=== PATIENT | female | born 1940 | race Caucasian/White ===

== ENCOUNTER → 2017-12-19 | Outpatient (CLI) | payer OTHER | END | disposition home or self-care (01) | LOC: C.PATHSPEC 17:23 | PROVIDERS: ATTEND Urology | DX: R31.9 Hematuria, unspecified (principal) ==

== ENCOUNTER → 2017-12-23 | Outpatient (CLI) | payer OTHER ==
[2017-12-23 18:00] LABS: BLOOD UREA NITROGEN 15 mg/dl (7-18); CREATININE 0.85 mg/dl (0.60-1.20)
== END | disposition home or self-care (01) ==
LOC: C.LABMFLN 14:35
PROVIDERS: ATTEND Urology
DX: R31.9 Hematuria, unspecified (principal)

== ENCOUNTER → 2017-12-30 | Outpatient (CLI) | payer OTHER, MEDICARE ==
[~2017-12-30] MED LIST: OPTIRAY 320 IV PRN
--- NOTE | 2017-12-30 14:38 | DIAGNOSTIC IMAGING REPORT ---
CT OF THE ABDOMEN AND PELVIS WITH AND WITHOUT CONTRAST HEMATURIA PROTOCOL CLINICAL HISTORY: Hematuria. Right flank pain. COMPARISON STUDY: None. TECHNIQUE: Unenhanced and split bolus phase imaging of the abdomen and pelvis was performed. Injection of 120 cc of Optiray 320 IV was uneventful. A dose lowering technique was utilized adhering to the principles of ALARA. CT DOSE: 1820.02 mGycm FINDINGS: Lung bases are clear. No renal, ureteral or bladder calculi are present. There is no hydronephrosis or hydroureter. No upper tract urothelial lesions are identified. The ureters are incompletely opacified. The nondependent aspect of the bladder is unopacified. No urothelial lesion is identified on this exam. Note is made of a 1 cm left renal cyst. Multiple subcentimeter bilateral renal lesions are too small to characterize but likely reflect cysts as well. Mild biliary ductal dilatation is likely due to prior cholecystectomy. There is an 8 mm right hepatic lobe cyst. There is no pancreatic ductal dilatation. The spleen and adrenal glands are unremarkable. There is colonic diverticulosis without evidence for acute diverticulitis. There is no lymphadenopathy or ascites. The appendix is not visualized. There is no right lower quadrant inflammation. A pessary device is in place. IMPRESSION: 1. No CT findings to explain hematuria. Suboptimal opacification of the ureters and bladder but no urothelial lesion identified. No hydronephrosis or urinary tract. 2. No acute process within the abdomen or pelvis. 3. Colonic diverticulosis without evidence for acute diverticulitis. Electronically signed by: Christiano Mancuso M.D. 12/30/2017 2:37 PM Dictated Date/Time: 12/30/2017 12:46 PM
== END | disposition home or self-care (01) ==
LOC: C.CTS 11:39
PROVIDERS: ATTEND Urology
DX: R31.9 Hematuria, unspecified (principal); K57.30 Diverticulosis of large intestine without perforation or abscess without bleeding

== ENCOUNTER → 2018-01-02 | Outpatient (CLI) | payer OTHER, MEDICARE ==
[2018-01-02 17:58] LABS: BLOOD UREA NITROGEN 15 mg/dl (7-18); CREATININE 0.87 mg/dl (0.60-1.20)
== END | disposition home or self-care (01) ==
LOC: C.LABMFLN 12:03
PROVIDERS: ATTEND Urology
DX: R31.9 Hematuria, unspecified (principal)

== ENCOUNTER 2022-12-10 21:00 | Inpatient (IN) ==
[2022-12-10] MEDS ORDERED: SODIUM CHLORIDE 0.9% 1000ML 1,000 ML IV SCH (22:45)
--- NOTE | 2022-12-10 22:51 | Emergency Department Note ---
Impression & Plan Weakness, Balance problem, Acute UTI, Occlusion of right vertebral artery ED Provider Note NAME: EREN HOYT AGE: 82 SEX: F : 1940 ARRIVES VIA: Ambulance INFORMANT: [Patient] ED PROVIDER(S): [Les Vela MD] Patient first seen by me at 2221 CHIEF COMPLAINT: Weakness, unstable, neck pain HISTORY OF PRESENT ILLNESS: The patient is an 82-year-old female with multiple complaints. The patient presents by ambulance. The patient was at [facility] about 3 weeks ago. She underwent a cardiac catheterization without intervention. She had an ablation performed for A-fib. She states that at some point, they put a camera down into her throat and irritated the throat somehow. She has been hoarse ever since. The patient states that she has been weak and feeling poorly since leaving the hospital but in the last week or so, she has had issues with her balance, she has had a hard time finding her words. She has had some increasing right neck pain and does not feel steady. She did fall once but did not really suffer any injury. The patient has had intermittent headaches and some intermittent facial numbness. She has not had chest pain or abdominal pain, no vomiting or diarrhea. No urinary complaints. She can swallow food and drink liquids without difficulty. Of note, the patient is still on Eliquis. She states that she does have a meningioma on the right side of the brain which has been present for some time. PMHx/PSHx: See Below SOCIAL HISTORY: See Below. PHYSICAL EXAM: GENERAL: Patient is in no acute distress. Hoarse voice. HEENT: No acute trauma, normocephalic atraumatic, mucous membranes moist, no nasal congestion. NECK: No stridor, no adenopathy, no meningismus, trachea is midline. She is tender along the right side of the neck in the area of the right carotid. No hematoma or mass felt. LUNGS: Clear to auscultation bilaterally, no wheeze, no rhonchi, breath sounds equal. HEART: Without murmurs gallops or rubs, regular rate and rhythm. ABDOMEN: Soft, nontender, bowel sounds positive, no peritonitis. EXTREMITIES: No cyanosis or edema, full range of motion of all the joints without pain or difficulty, no signs for acute trauma. NEUROLOGIC: Oriented x 3, no acute motor or sensory deficits, no focal weakness. No facial droop, no speech slur. No extremity drift or cerebellar dysfunction. SKIN: No rash, no jaundice, no diaphoresis. DIFFERENTIAL DIAGNOSIS: Stroke, intracranial bleeding, carotid or vertebral dissection, infection, UTI, anemia, electrolyte imbalance, dehydration, among others. EMERGENCY DEPARTMENT COURSE/PROCEDURES: Prior/Outside records reviewed: None. ECG per my interpretation: Indication was weakness. The ECG shows a normal si nus rhythm with a rate of 77. There is some nonspecific ST change and some baseline artifact noted. There is no ST elevation, no PVCs. The QTc is 477. Continuous Cardiac Monitoring per my interpretation: An order was placed for continuous cardiac monitoring. The monitor shows a rate of 76 with normal sinus rhythm. Critical Care Note: I have personally spent 49 minutes of critical care time in the direct management of this patient. This includes bedside care, interpretation of diagnostic studies, and testing, discussion with consultants, patient, and family members, and other required patient management activities. This 49 minutes is in excess of all separately billable procedures. MEDICAL DECISION MAKING: There is no leukocytosis or concerning anemia. There is a normal platelet count. Potassium slightly low but not in need of emergent correction. No renal failure. No concerning liver enzyme elevation. ECG shows a sinus rhythm, no ischemia. Cardiac enzyme testing x1 is not consistent with acute cardiac injury. Patient appears to be in a euthyroid state. Urinalysis does suggest infection. COVID, influenza and RSV test were negative. Chest film does not show mediastinal widening, pneumonia or pneumothorax per my review. Brain CT shows no acute bleed or mass effect. CT angio of the head and neck were performed. There was an occlusion to the right vertebral artery. On exam, the patient was nontoxic. She had no focal neurologic findings by my exam. The patient was clearly not a candidate for a stroke alert or tPA. Her symptoms have been ongoing for at least a week. She is already on Eliquis. The patient was given IV saline, she was given IV ceftriaxone. Given the UTI, given her feelings of being off balance, given the right vertebral occlusion, I do think a hospital stay is warranted. Further work-up and care is needed. She may even require some inpatient rehab. I spoke with the patient and her family, I spoke with case management, the on- call hospitalist was consulted. DISPOSITION: Patient's presentation and findings warrant a hospital stay. Past Med/Surg History Medical History Atrial fibrillation Meningioma Social History Smoking Status: Never smoker Feels Safe at Home: Yes Results & Data (ED) Vital Signs Vital Signs - 24 hr 12/10/22 21:13 12/10/22 21:13 12/10/22 23:14 Temperature 36.7 C 36.7 C Temperature Source Oral Oral Pulse Rate 75 Pulse Rate [Finger] 76 76 Pulse Rhythm Regular Pulse Strength Normal Respiratory Rate 20 20 18 Respiratory Effort / Characteristics Non-Labored Accessory Muscle Use Non-Labored Spontaneous Non-Labored Spontaneous Respiratory Depth Normal Normal Normal Blood Pressure 147/72 H Blood Pressure [Right Arm] 147/72 H 123/85 Blood Pressure Mean 97 Blood Pressure Mean [Right Arm] 97 97 Blood Pressure Position Lying Blood Pressure Position [Right Arm] Sitting Pulse Oximetry 96 94 93 Oxygen Delivery Method Room Air Room Air Room Air Sepsis Recent Fever Within 48 Hours No Sepsis New/Unexplained Change in Mental Status N/A Sepsis Action Taken by Nursing No Action Required 12/11/22 01:44 Temperature Temperature Source Pulse Rate Pulse Rate [Finger] 73 Pulse Rhythm Pulse Strength Respiratory Rate 18 Respiratory Effort / Characteristics Non-Labored Spontaneous Respiratory Depth Normal Blood Pressure Blood Pressure [Right Arm] 152/80 H Blood Pressure Mean Blood Pressure Mean [Right Arm] 104 Blood Pressure Position Blood Pressure Position [Right Arm] Lying Pulse Oximetry 95 Oxygen Delivery Method Room Air Sepsis Recent Fever Within 48 Hours Sepsis New/Unexplained Change in Mental Status Sepsis Action Taken by [facility] Medications Current Medication List: was personally reviewed by me Laboratory Data Attestation: I reviewed the patient's lab results. 12/10/22 20:35 12/10/22 20:35 Lab Results 12/10/22 12/10/22 12/10/22 Range/Units 20:35 20:35 20:35 WBC 9.24 (4.8-10.8) K/ul RBC 5.00 (4.20-5.40) M/uL Hgb 14.9 (12.0-16.0) g/dl Hct 44.6 (37.0-47.0) % MCV 89.2 (80.0-100.0) fL MCH 29.8 (25.0-34.0) pg MCHC 33.4 (32.0-36.0) g/dL RDW Std Deviation 43.5 (36.4-46.3) fL RDW Coeff of Pavan 13.3 (11.5-14.5) % Plt Count 176 (130-400) K/uL MPV 11.9 (9.4-12.4) fL Immature Gran % (Auto) 0.2 % Neut % (Auto) 78.8 % Lymph % (Auto) 12.8 % Nolan % (Auto) 6.6 % Eos % (Auto) 1.2 % Baso % (Auto) 0.4 % Neut # (Auto) 7.28 H (1.40-6.50) K/uL Lymph # (Auto) 1.18 L (1.2-3.4) K/uL Nolan # (Auto) 0.61 H (0.11-0.59) K/uL Eos # (Auto) 0.11 (0-0.50) K/uL Baso # (Auto) 0.04 (0-0.2) K/uL Immature Gran # (Auto) 0.02 (0.01-0.20) K/uL Sodium 140 (136-145) mmol/L Potassium 3.4 L (3.5-5.1) mmol/L Chloride 103 (98-107) mmol/L Carbon Dioxide 28 (21-32) mmol/L Anion Gap 9 (3-11) BUN 20 (6-23) mg/dl Creatinine 0.89 (0.6-1.2) mg/dl Est Cr Clr Drug Dosing 54.8 ml/min Est GFR ( Amer) 70.9 ml/min Est GFR (Non-Af Amer) 61.2 ml/min BUN/Creatinine Ratio 22.5 H (10-20) Glucose 124 H (70-99(Fasting)) mg/dl Calcium 9.7 (8.5-10.1) mg/dl Magnesium 1.8 (1.7-2.4) mg/dl Total Bilirubin 1.1 H (0.2-1.0) mg/dl AST 17 (13-39) U/L ALT 15 (7-52) U/L Alkaline Phosphatase 98 (34-104) U/L Troponin I High Sens 6.8 (0-14) pg/ml Total Protein 6.6 (6.0-8.3) gm/dl Albumin 4.0 (3.4-5.0) gm/dl Globulin 2.6 (2.5-4.0) gm/dl Albumin/Globulin Ratio 1.5 (0.9-2) TSH 3.075 (0.300-4.500) uIu/ml Urine Color Urine Appearance (Clear) Urine pH (4.5-7.5) Ur Specific Parlier (1.000-1.030) Urine Protein (Negative) Urine Glucose (UA) (Negative) Urine Ketones (Negative) Urine Blood (Negative) Urine Nitrite (Negative) Urine Bilirubin (Negative) Urine Urobilinogen (Negative) Ur Leukocyte Esterase (Negative) Urine WBC (Auto) (0-5) /hpf Urine RBC (Auto) (0-4) /hpf U Hyaline Cast (Auto) (0-5) /lpf U Epithel Cells (Auto) (0-5) /lpf Urine Bacteria (Auto) (Negative) SARS-CoV-2 (PCR) (Negative) Influenza Type A (PCR) (Neg) Influenza Type B (PCR) (Neg) RSV (RT-PCR) (Neg) 12/10/22 12/10/22 Range/Units 23:03 23:11 WBC (4.8-10.8) K/ul RBC (4.20-5.40) M/uL Hgb (12.0-16.0) g/dl Hct (37.0-47.0) % MCV (80.0-100.0) fL MCH (25.0-34.0) pg MCHC (32.0-36.0) g/dL RDW Std Deviation (36.4-46.3) fL RDW Coeff of Pavan (11.5-14.5) % Plt Count (130-400) K/uL MPV (9.4-12.4) fL Immature Gran % (Auto) % Neut % (Auto) % Lymph % (Auto) % Nolan % (Auto) % Eos % (Auto) % Baso % (Auto) % Neut # (Auto) (1.40-6.50) K/uL Lymph # (Auto) (1.2-3.4) K/uL Nolan # (Auto) (0.11-0.59) K/uL Eos # (Auto) (0-0.50) K/uL Baso # (Auto) (0-0.2) K/uL Immature Gran # (Auto) (0.01-0.20) K/uL Sodium (136-145) mmol/L Potassium (3.5-5.1) mmol/L Chloride (98-107) mmol/L Carbon Dioxide (21-32) mmol/L Anion Gap (3-11) BUN (6-23) mg/dl Creatinine (0.6-1.2) mg/dl Est Cr Clr Drug Dosing ml/min Est GFR ( Amer) ml/min Est GFR (Non-Af Amer) ml/min BUN/Creatinine Ratio (10-20) Glucose (70-99(Fasting)) mg/dl Calcium (8.5-10.1) mg/dl Magnesium (1.7-2.4) mg/dl Total Bilirubin (0.2-1.0) mg/dl AST (13-39) U/L ALT (7-52) U/L Alkaline Phosphatase (34-104) U/L Troponin I High Sens (0-14) pg/ml Total Protein (6.0-8.3) gm/dl Albumin (3.4-5.0) gm/dl Globulin (2.5-4.0) gm/dl Albumin/Globulin Ratio (0.9-2) TSH (0.300-4.500) uIu/ml Urine Color Dark Yellow Urine Appearance Cloudy A (Clear) Urine pH 6.0 (4.5-7.5) Ur Specific Parlier 1.023 (1.000-1.030) Urine Protein Trace H (Negative) Urine Glucose (UA) Negative (Negative) Urine Ketones 1+ H (Negative) Urine Blood Negative (Negative) Urine Nitrite Positive A (Negative) Urine Bilirubin Negative (Negative) Urine Urobilinogen Negative (Negative) Ur Leukocyte Esterase 1+ H (Negative) Urine WBC (Auto) 10-30 H (0-5) /hpf Urine RBC (Auto) 5-10 H (0-4) /hpf U Hyaline Cast (Auto) 10-30 H (0-5) /lpf U Epithel Cells (Auto) >30 H (0-5) /lpf Urine Bacteria (Auto) 4+ H (Negative) SARS-CoV-2 (PCR) NEGATIVE (Negative) Influenza Type A (PCR) Negative (Neg) Influenza Type B (PCR) Negative (Neg) RSV (RT-PCR) Negative (Neg) Administered Medications Discontinued Medications Sodium Chloride (Nss 1000ml) 1,000 mls @ 999 mls/hr IV .Q1H1M BRIAN Stop: 12/10/22 23:45 Last Infusion: 12/11/22 01:02 Dose: 0 mls/hr Documented By: Admin: 12/10/22 23:00 Dose: 999 mls/hr Documented By: SARINA Ceftriaxone Sodium (Rocephin) 2,000 mg in 70 mls @ 140 mls/hr IV NOW STA Stop: 12/11/22 00:37 Last Infusion: 12/11/22 01:02 Dose: 0 mls/hr Documented By: Admin: 12/11/22 00:39 Dose: 140 mls/hr Documented By: EUNICE Ioversol (Optiray 320 500ml) 125 ml IV ONCE ONE Stop: 12/11/22 00:33 Last Admin: 12/11/22 00:32 Dose: 111 ml Documented By: SHARAD Imaging Data Attestation: I personally reviewed and interpreted this imaging study as follows: My Impression: Chest x-ray per my review: There are some chronic changes, no pneumonia, CHF or pneumothorax. Radiologist's Impression: Head CT 12/10/22 22:41 Exam(s): CT HEAD Without Contrast EXAM: CT Head Without Intravenous Contrast CLINICAL HISTORY: Reason for exam: weakness. TECHNIQUE: Axial computed tomography images of the head/brain without intravenous contrast. CTDI is 37.12 mGy and DLP is 1135.74 mGy-cm. Automated exposure control was utilized for the study. A dose lowering technique was utilized adhering to the principles of ALARA. COMPARISON: No relevant prior studies available. FINDINGS: Brain: Probable 5 x 12 mm partially calcified meningioma superficial to the right frontal lobe without compression of the underlying cerebrum. Mild age-appropriate cerebral volume loss. The brain appears within normal limits. No acute large vessel infarct or intracranial hemorrhage is seen. Ventricles: Unremarkable. No ventriculomegaly. Bones/joints: Unremarkable. No acute fracture. Soft tissues: Unremarkable. Sinuses: Unremarkable as visualized. No acute sinusitis. Mastoid air cells: Unremarkable as visualized. No mastoid effusion. IMPRESSION: Mild age-appropriate cerebral volume loss. The brain appears within normal limits. No acute large vessel infarct or intracranial hemorrhage is seen. Electronically signed by: Santy Mora MD 12/11/22 01:19 AM Head CTA 12/10/22 22:42 Exam(s): CTA HEAD With Contrast IV Amt: 111 ML OPTIRAY 320 EXAM: CT Angiography Head With Intravenous Contrast CLINICAL HISTORY: Reason for exam: poss stroke. TECHNIQUE: Axial computed tomographic angiography images of the head with intravenous contrast. CTDI is 37.12 mGy and DLP is 1135.74 mGy-cm. Automated exposure control was utilized for the study. A dose lowering technique was utilized adhering to the principles of ALARA. MIP reconstructed images were created and reviewed. CONTRAST: Patient received 111 ML OPTIRAY 320 of IV contrast COMPARISON: No relevant prior studies available. FINDINGS: Right internal carotid artery: No acute findings. Intracranial segment is patent with no significant stenosis. No aneurysm. Right anterior cerebral artery: Unremarkable. No occlusion or significant stenosis. No aneurysm. Right middle cerebral artery: Unremarkable. No occlusion or significant stenosis. No aneurysm. Right posterior cerebral artery: Unremarkable. No occlusion or significant stenosis. No aneurysm. Right vertebral artery: There is occlusion of the terminal right vertebral artery segment. Left internal carotid artery: No acute findings. Intracranial segment is patent with no significant stenosis. No aneurysm. Left anterior cerebral artery: Unremarkable. No occlusion or significant stenosis. No aneurysm. Left middle cerebral artery: Unremarkable. No occlusion or significant stenosis. No aneurysm. Left posterior cerebral artery: Unremarkable. No occlusion or significant stenosis. No aneurysm. Left vertebral artery: Unremarkable as visualized. Basilar artery: Unremarkable. No occlusion or significant stenosis. No aneurysm. 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 The remainder of the cerebral vessels are widely patent. Electronically signed by: Edith Herrera MD 12/11/22 01:39 AM Neck CTA 12/10/22 22:42 CR Exam(s): CTA NECK With Contrast IV Amt: 111 ML OPTIRAY 320 EXAM: CT Angiography Neck With Intravenous Contrast CLINICAL HISTORY: Reason for exam: poss stroke. TECHNIQUE: Routine carotid CT angiography protocol was performed with intravenous contrast. NASCET criteria using the distal ICAs for comparison were used for evaluation of stenoses. CTDI is 37.12 mGy and DLP is 1135.74 mGy-cm. Automated exposure control was utilized for the study. A dose lowering technique was utilized adhering to the principles of ALARA. MIP reconstructed images were created and reviewed. CONTRAST: Patient received 111 ML OPTIRAY 320 of IV contrast COMPARISON: None. FINDINGS: VASCULATURE: Right common carotid artery: The right common carotid artery is tortuous but widely patent. No occlusion or significant stenosis. No dissection. Right internal carotid artery: Mild calcified plaque in the right carotid bifurcation with 20% stenosis. No dissection. Right external carotid artery: Unremarkable. No occlusion. Right vertebral artery: The proximal right vertebral artery is tortuous with kinking causing 60% stenosis which may be transient. No dissection is seen. There is tapering and limited contrast seen in the distal right vertebral artery which is either hypoplastic or occluded. Left common carotid artery: Unremarkable. No occlusion or significant stenosis. No dissection. Left internal carotid artery: Calcified plaque in the left carotid bulb with 10% stenosis. No dissection. Left external carotid artery: Unremarkable. No occlusion. Left vertebral artery: The left vertebral artery is widely patent and unremarkable. No occlusion or significant stenosis. No dissection. Aorta: The aortic arch is mildly calcified but nondilated. There is no aneurysm or dissection. The great vessels are tortuous proximally but widely patent. NECK: Bones/joints: Mild degenerative changes throughout the cervical spine. No acute fracture or subluxation is seen. Soft tissues: Unremarkable. Thyroid: Heterogenous multicystic appearance of the right thyroid lobe. Lung apices: Clear. CAROTID STENOSIS REFERENCE USING NASCET CRITERIA: % ICA stenosis = (1 - narrowest ICA diameter/diameter of distal cervical ICA) x 100. Mild - <50% stenosis. Moderate - 50-69% stenosis. Severe - 70-94% stenosis. Near occlusion - 95-99% stenosis. Occluded - 100% stenosis. IMPRESSION: The proximal right vertebral artery is tortuous with kinking causing 60% stenosis which may be transient. No dissection is seen. There is tapering and limited contrast seen in the distal right vertebral artery which is either hypoplastic or occluded. Mild calcification in both carotid bifurcations without flow limiting stenosis or dissection. Communications: Call Doctor Above results Electronically signed by: Santy Mora MD 12/11/22 01:28 AM Discharge Plan Visit Data Chief Complaint: Neck Injury/Pain Stated Complaint: DIZZINESS/WEAKNESS ED Provider: Les Vela Discharge Problem: Weakness, Balance problem, Acute UTI, Occlusion of right vertebral artery Patient Disposition: Admitted As Inpatient Condition: Fair Forms Stand Alone Forms: [facility] Referrals Referrals: Gabriele Caal MD [Outside Practitioners] -
[2022-12-10 23:14] LABS: Basophils # (auto) 0.04 K/uL (0-0.2); Basophils % (auto) 0.4 %; Eosinophils # (auto) 0.11 K/uL (0-0.50); Eosinophils % (auto) 1.2 %; Hematocrit (blood only) 44.6 % (37.0-47.0); Hemoglobin 14.9 g/dl (12.0-16.0); Immature Granulocytes # (auto) 0.02 K/uL (0.01-0.20); Immature Granulocytes % (auto) 0.2 %; Lymphocytes # (auto) 1.18 K/uL (1.2-3.4); Lymphocytes % (auto) 12.8 %; Mean Corpuscular Hemoglobin 29.8 pg (25.0-34.0); Mean Corpuscular Hgb Conc 33.4 g/dL (32.0-36.0); Mean Corpuscular Volume 89.2 fL (80.0-100.0); Mean Platelet Volume 11.9 fL (9.4-12.4); Monocytes # (auto) 0.61 K/uL (0.11-0.59); Monocytes % (auto) 6.6 %; Neutrophils # (auto) 7.28 K/uL (1.40-6.50); Neutrophils % (auto) 78.8 %; Platelet Count 176 K/uL (130-400); RDW Coefficient of Variation 13.3 % (11.5-14.5); RDW Standard Deviation 43.5 fL (36.4-46.3); White Blood Count 9.24 K/ul (4.8-10.8)
[2022-12-10 23:19] LABS: Albumin Globulin Ratio 1.5 (0.9-2); BUN Creatinine Ratio 22.5 (10-20); Bilirubin,Total 1.1 mg/dl (0.2-1.0); Calcium 9.7 mg/dl (8.5-10.1); Creatinine Clr Calc Pharmacy 54.8 ml/min; Est GFR (African American) 70.9 ml/min; Est GFR (Non-African American) 61.2 ml/min; Globulin 2.6 gm/dl (2.5-4.0); Magnesium 1.8 mg/dl (1.7-2.4); Potassium 3.4 mmol/L (3.5-5.1); Total Protein 6.6 gm/dl (6.0-8.3)
[2022-12-10 23:25] LABS: Troponin I High Sensitivity 6.8 pg/ml (0-14)
[2022-12-10 23:58] LABS: Appearance Urine Cloudy (Clear); Bacteria Urine Automated 4+ (Negative); Bilirubin Urine Negative (Negative); Blood Urine Negative (Negative); Color Urine Dark Yellow; Epithelial Cell Urine Auto >30 /lpf (0-5); Glucose Urine UA Negative (Negative); Ketones Urine 1+ (Negative); Leukocyte Esterase Urine 1+ (Negative); Nitrite Urine Positive (Negative); Protein Urine Trace (Negative); Specific Gravity Urine 1.023 (1.000-1.030); Urobilinogen Urine Negative (Negative)
[2022-12-11] MEDS ORDERED: cefTRIAXone SODIUM 2,000 MG/70 ML BAG IV STA (00:08)
[2022-12-11 00:13] LABS: Influenza A virus by PCR Negative (Neg); Influenza B virus by PCR Negative (Neg); RSV by PCR Negative (Neg); SARS CoV2 RNA(COVID-19) Ceph NEGATIVE (Negative)
[2022-12-11] MEDS ORDERED: OPTIRAY 320 500ml IV ONE (00:32)
--- NOTE | 2022-12-11 01:20 | CT Scan Report ---
Exam(s): CT HEAD Without Contrast EXAM: CT Head Without Intravenous Contrast CLINICAL HISTORY: Reason for exam: weakness. TECHNIQUE: Axial computed tomography images of the head/brain without intravenous contrast. CTDI is 37.12 mGy and DLP is 1135.74 mGy-cm. Automated exposure control was utilized for the study. A dose lowering technique was utilized adhering to the principles of ALARA. COMPARISON: No relevant prior studies available. FINDINGS: Brain: Probable 5 x 12 mm partially calcified meningioma superficial to the right frontal lobe without compression of the underlying cerebrum. Mild age-appropriate cerebral volume loss. The brain appears within normal limits. No acute large vessel infarct or intracranial hemorrhage is seen. Ventricles: Unremarkable. No ventriculomegaly. Bones/joints: Unremarkable. No acute fracture. Soft tissues: Unremarkable. Sinuses: Unremarkable as visualized. No acute sinusitis. Mastoid air cells: Unremarkable as visualized. No mastoid effusion. IMPRESSION: Mild age-appropriate cerebral volume loss. The brain appears within normal limits. No acute large vessel infarct or intracranial hemorrhage is seen. Electronically signed by: Santy Mora MD 12/11/22 01:19 AM
--- NOTE | 2022-12-11 01:29 | CT Scan Report ---
Exam(s): CTA NECK With Contrast IV Amt: 111 ML OPTIRAY 320 EXAM: CT Angiography Neck With Intravenous Contrast CLINICAL HISTORY: Reason for exam: poss stroke. TECHNIQUE: Routine carotid CT angiography protocol was performed with intravenous contrast. NASCET criteria using the distal ICAs for comparison were used for evaluation of stenoses. CTDI is 37.12 mGy and DLP is 1135.74 mGy-cm. Automated exposure control was utilized for the study. A dose lowering technique was utilized adhering to the principles of ALARA. MIP reconstructed images were created and reviewed. CONTRAST: Patient received 111 ML OPTIRAY 320 of IV contrast COMPARISON: None. FINDINGS: VASCULATURE: Right common carotid artery: The right common carotid artery is tortuous but widely patent. No occlusion or significant stenosis. No dissection. Right internal carotid artery: Mild calcified plaque in the right carotid bifurcation with 20% stenosis. No dissection. Right external carotid artery: Unremarkable. No occlusion. Right vertebral artery: The proximal right vertebral artery is tortuous with kinking causing 60% stenosis which may be transient. No dissection is seen. There is tapering and limited contrast seen in the distal right vertebral artery which is either hypoplastic or occluded. Left common carotid artery: Unremarkable. No occlusion or significant stenosis. No dissection. Left internal carotid artery: Calcified plaque in the left carotid bulb with 10% stenosis. No dissection. Left external carotid artery: Unremarkable. No occlusion. Left vertebral artery: The left vertebral artery is widely patent and unremarkable. No occlusion or significant stenosis. No dissection. Aorta: The aortic arch is mildly calcified but nondilated. There is no aneurysm or dissection. The great vessels are tortuous proximally but widely patent. NECK: Bones/joints: Mild degenerative changes throughout the cervical spine. No acute fracture or subluxation is seen. Soft tissues: Unremarkable. Thyroid: Heterogenous multicystic appearance of the right thyroid lobe. Lung apices: Clear. CAROTID STENOSIS REFERENCE USING NASCET CRITERIA: % ICA stenosis = (1 - narrowest ICA diameter/diameter of distal cervical ICA) x 100. Mild - <50% stenosis. Moderate - 50-69% stenosis. Severe - 70-94% stenosis. Near occlusion - 95-99% stenosis. Occluded - 100% stenosis. IMPRESSION: The proximal right vertebral artery is tortuous with kinking causing 60% stenosis which may be transient. No dissection is seen. There is tapering and limited contrast seen in the distal right vertebral artery which is either hypoplastic or occluded. Mild calcification in both carotid bifurcations without flow limiting stenosis or dissection. Communications: Call Doctor Above results Electronically signed by: Santy Mora MD 12/11/22 01:28 AM
--- NOTE | 2022-12-11 01:40 | CT Scan Report ---
Exam(s): CTA HEAD With Contrast IV Amt: 111 ML OPTIRAY 320 EXAM: CT Angiography Head With Intravenous Contrast CLINICAL HISTORY: Reason for exam: poss stroke. TECHNIQUE: Axial computed tomographic angiography images of the head with intravenous contrast. CTDI is 37.12 mGy and DLP is 1135.74 mGy-cm. Automated exposure control was utilized for the study. A dose lowering technique was utilized adhering to the principles of ALARA. MIP reconstructed images were created and reviewed. CONTRAST: Patient received 111 ML OPTIRAY 320 of IV contrast COMPARISON: No relevant prior studies available. FINDINGS: Right internal carotid artery: No acute findings. Intracranial segment is patent with no significant stenosis. No aneurysm. Right anterior cerebral artery: Unremarkable. No occlusion or significant stenosis. No aneurysm. Right middle cerebral artery: Unremarkable. No occlusion or significant stenosis. No aneurysm. Right posterior cerebral artery: Unremarkable. No occlusion or significant stenosis. No aneurysm. Right vertebral artery: There is occlusion of the terminal right vertebral artery segment. Left internal carotid artery: No acute findings. Intracranial segment is patent with no significant stenosis. No aneurysm. Left anterior cerebral artery: Unremarkable. No occlusion or significant stenosis. No aneurysm. Left middle cerebral artery: Unremarkable. No occlusion or significant stenosis. No aneurysm. Left posterior cerebral artery: Unremarkable. No occlusion or significant stenosis. No aneurysm. Left vertebral artery: Unremarkable as visualized. Basilar artery: Unremarkable. No occlusion or significant stenosis. No aneurysm. 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 The remainder of the cerebral vessels are widely patent. Electronically signed by: Edith Herrera MD 12/11/22 01:39 AM
[2022-12-11] MEDS ORDERED: Patient's ALLERGY Info needs ENTERED SCH (04:00)
[2022-12-11] MEDS ORDERED: SODIUM CHLORIDE 0.9% 1000ML 1,000 ML IV SCH (06:05)
[2022-12-11] MEDS ORDERED: GLUCOSE 10 TAB/TUBE PO PRN (06:05)
[2022-12-11] MEDS ORDERED: ACETAMINOPHEN 325 MG TAB PO PRN (06:05)
[2022-12-11] MEDS ORDERED: FUROSEMIDE 40 MG TAB PO PRN (06:05)
[2022-12-11] MEDS ORDERED: GLUCOSE 40% GEL 15 GM TUBE PO PRN (06:05)
[2022-12-11] MEDS ORDERED: POLYETHYLENE (MIRALAX) 17 GM PACK PO PRN (06:05)
[2022-12-11] MEDS ORDERED: GLUCAGON FOR INJ 1 MG VIAL SQ PRN (06:05)
[2022-12-11] MEDS ORDERED: CARBOHYDRATES FOR HYPOGLYCEMIA PO PRN (06:05)
[2022-12-11] MEDS ORDERED: NITROGLYCERIN SL 0.4 MG/TAB TAB SL PRN (06:05)
[2022-12-11] MEDS ORDERED: DEXTROSE 50% 50 ML SYRINGE IV PRN (06:05)
[2022-12-11] MEDS ORDERED: Patient's ALLERGY Info needs ENTERED STA (06:45)
--- NOTE | 2022-12-11 07:59 | History and Physical Report ---
DATE OF ADMISSION: 12/11/2022. CHIEF COMPLAINT: Hoarseness of voice and some imbalance. HISTORY OF PRESENT ILLNESS: An 82-year-old female with past medical history significant for type 2 diabetes, peripheral neuropathy, sleep apnea, paroxysmal atrial fibrillation, hypertension, GERD, diverticulosis of large intestine, osteoporosis, history of meningioma, history of pulmonary embolism, generalized anxiety disorder, chronic fatigue. The patient lives with the grandson. Walks with a cane. Presents with ongoing imbalance for the last two weeks. For the last two days, it got worse, that is the reason she came here and she states she was in the [facility] [place] in October where cardiac catheterization was done, which was fine, and ablation was done for AFib and she was also shocked. At that time, the tube was passed through the throat. Since then, she is having a lot of soreness to the throat and hoarseness of the voice. Initially, she was not able to eat, but now she is eating regular food okay. Denies any fever or chills. She denies any chest pain, no shortness of breath, no nausea, no abdominal pain. She has chronic urinary incontinence. No burning micturition. Normal bowel movements. No swelling in the legs. No headache. She is not feeling dizzy, but while walking she could not walk because she felt imbalance. Since October, since the procedure, she is getting on and off tingliness in the face and sometimes her left eyebrow raises up. She saw eye doctor and they could not find anything. Pressures are okay. Denies any runny nose. She says she could not hear from the left ear. ALLERGIES: LISINOPRIL, BACTRIM, CITALOPRAM, CYMBALTA, DULOXETINE, PERCOCET, ROFECOXIB. PAST MEDICAL HISTORY: As mentioned above. PAST SURGICAL HISTORY: Closure of vagina, colonoscopy with biopsy, cholecystectomy, back surgery, total hysterectomy, removal of prosthetic vaginal graft. MEDICATIONS: The patient is on amlodipine 10 mg p.o. daily, Eliquis 5 mg p.o. b.i.d., aspirin 81 mg p.o. daily, atorvastatin 40 mg p.o. daily, Coenzyme Q10 100 mg p.o. daily, furosemide 40 mg p.o. daily p.r.n., hydralazine 25 mg p.o. b.i.d., levothyroxine 50 mcg p.o. daily, losartan 50 mg p.o. b.i.d., magnesium oxide 400 mg p.o. b.i.d., metformin 500 mg p.o. a.m., metoprolol succinate 50 mg p.o. a.m., multivitamin 1 tablet p.o. daily, omeprazole 20 mg p.o. daily, potassium chloride 20 mEq p.o. daily, terazosin 2 mg p.o. daily. FAMILY HISTORY: Significant for son has asthma, diabetes; father has heart disease; mother has heart disease. SOCIAL HISTORY: , no smoking, no alcohol, no drug use. REVIEW OF SYSTEMS: As per HPI. Rest of the review of systems is negative. PHYSICAL EXAMINATION: GENERAL: The patient is of moderate built, not in acute distress. VITAL SIGNS: Temperature 36.7, pulse 61, respiratory rate 17, blood pressure 120/58, oxygen 93% on room air. HEENT: Pupils equal, round, and reactive to light. Oral mucosa moist. NECK: No JVD. No neck masses. CARDIOVASCULAR: S1 and S2 heard. Regular rate and rhythm. No murmur, no gallop. RESPIRATORY SYSTEM: Normal AP diameter. No accessory muscle use. No wheezing or crackles. ABDOMEN: Soft, bowel sounds present, nontender, no distention. CENTRAL NERVOUS SYSTEM: Alert and oriented. Speech is clear. No facial droop. Power 5/5 in all extremities. Sensation is intact. No pronator drift. Coordination of movements normal. EXTREMITIES: No edema, no erythema. LABORATORY DATA: WBC 9.2, hemoglobin 14.9, hematocrit 44.6, platelets 176. Sodium 140, potassium 3.4, chloride 103, CO2 of 28, BUN 20, creatinine 0.8, serum glucose 124, calcium 9.7, magnesium 1.8, total bilirubin 1.1, AST 17, ALT 15, alkaline phosphatase 98. Troponin I high sensitivity 6.8. TSH 3.0. Urinalysis, +1 ketones, positive nitrite, +1 leukocyte esterase, +4 bacteria. SARS-CoV-2 PCR negative. Influenza A and B PCR negative. RSV PCR negative. IMAGING DATA: CTA of the neck, the proximal right vertebral artery is tortuous with kinking causing 60% stenosis, which may be transient. No dissection is seen. Distal right vertebral artery, which is either hypoplastic or occluded. CTA of the head, occlusion of terminal right vertebral artery segment. The remainder of the cerebral vessels are widely patent. CT of the head without contrast, no acute findings. A 5 x 12 mm partially calcified meningioma superficial in the right frontal lobe without compression of the underlying cerebrum seen. Chest x-ray, no acute findings. ELECTROCARDIOGRAM: Normal sinus rhythm, rate of 77, no significant change was found. ASSESSMENT AND PLAN: This is an 82-year-old female who presents with imbalance. 1. Imbalance. This is going on for last two weeks, but lately got worse. History of meningioma seen on the CAT scan on the right frontal lobe. She says her left leg weakness is getting worse. Will get an MRI scan. PT/OT. Neurology consult for further recommendations. 2. Urinary tract infection: Could be causing her symptoms. Started on Rocephin. Will follow the cultures. 3. History of atrial fibrillation: Recently had ablation. On Eliquis and metoprolol succinate. Will monitor. 4. History of hypertension: On hydralazine, losartan, metoprolol succinate, terazosin, and amlodipine. Will monitor the blood pressure. 5. Hyperlipidemia: On statin. 6. Diabetes: On metformin. Will hold metformin. Placed on insulin sliding scale. Will follow blood sugars. 7. Gastroesophageal reflux disease: On omeprazole. 8. Deep venous thrombosis prophylaxis: On Eliquis. To try to get records from [facility]. DISPOSITION: Closely monitor in the med tele. PT/OT prior to discharge. Social service to help with discharge planning. Level 1 full code. Job ID: [id number] [facility]
[2022-12-11] MEDS: hydrALAZINE HCL 25 MG TAB PO SCH ×2 (08:26→20:37)
[2022-12-11] MEDS: LEVOTHYROXINE SODIUM 50 MCG TABLET PO SCH (08:27)
[2022-12-11] MEDS: LOSARTAN POTASSIUM 50 MG TAB PO SCH ×2 (08:27→20:38)
[2022-12-11] MEDS: MULTIVITAMIN TAB PO SCH (08:27)
[2022-12-11] MEDS: APIXABAN 5 MG TABLET PO SCH ×2 (08:27→20:37)
[2022-12-11] MEDS: PANTOprazole 40 MG TAB PO SCH (08:28)
[2022-12-11] MEDS: METOPROLOL SUCC 50MG EXT REL TAB PO SCH (08:28)
[2022-12-11] MEDS: MAGNESIUM OXIDE 400 MG TAB PO SCH ×2 (08:29→20:38)
[2022-12-11] MEDS: POTASSIUM CHLORIDE PWD 20 MEQ PACK PO SCH (08:29)
[2022-12-11] MEDS: ATORVASTATIN 40 MG TAB PO SCH (08:31)
[2022-12-11] MEDS: ASPIRIN 81 MG ECTAB PO SCH (08:31)
[2022-12-11] MEDS: TERAZOSIN HCL 1 MG CAP PO SCH (08:32)
[2022-12-11] MEDS: amLODIPine BESYLATE 5 MG TAB PO SCH (08:32)
--- NOTE | 2022-12-11 08:47 | XRay Report ---
XR chest 1V portable CLINICAL HISTORY: weakness TECHNIQUE: Single frontal radiograph of the chest was obtained. Comparison: None available at the time of this dictation. FINDINGS: No lines and tubes are seen. Cardiomegaly is noted. The aortic arch is calcified. Reticular interstit ial opacities are seen. No evidence of pleural effusion or pneumothorax. IMPRESSION: Cardiomegaly without evidence of acute abnormality. ACT 112: Negative or not required by law. Electronically signed by: Richard Crook M.D. 12/11/2022 8:45 AM
[2022-12-11] MEDS ORDERED: NON-FORMULARY MEDICATION (Coenzyme Q10 [Co Q-10] 100 mg Capsule) PO SCH (09:00)
[2022-12-11] MEDS ORDERED: GADOBUTROL 65ML VIAL IV ONE ×2 (09:49→23:05)
--- NOTE | 2022-12-11 10:25 | Magnetic Resonance Report ---
MR brain wo/w con CLINICAL HISTORY: imbalance TECHNIQUE: Multiplanar and multisequence MR images of the brain were obtained prior to and following administration of gadolinium contrast. Comparison: Comparison is made to CTA head and neck 12/11/2022 FINDINGS: Exam is limited by patient motion No abnormal restricted diffusion is identified. The white matter is unremarkable. Ex vacuo ventriculomegaly and sulcal enlargement is noted compatible with diffuse ence phalomalacia. There is an enhancing dural based lesion measuring 16 mm in the right parietal lobe, du ral tail is noted. There is also an 8 mm homogeneously enhancing intraparenchymal lesion in the regio n of the left frontal lobe superior frontal gyrus. This may be intraparenchymal however do to motion on coronal images, a dural origin cannot be entirely excluded. There is no mass effect or midline katarina ft. There is no evidence of acute intraparenchymal hemorrhage. No extra axial fluid collections are s een. The corpus callosum, pituitary gland, and cerebellar tonsils appear grossly unremarkable. Flow voids of the major intracranial arterial vessels are identified. The imaged portions of the para nasal sinuses, mastoid air cells, and orbits are unremarkable. IMPRESSION: 1. No evidence of acute infarct. 2. Likely meningioma in the right parietal region. 3. Homogeneously enhancing subcentimeter lesion in the region of the left frontal lobe. This may be intra-axial or dural based, evaluation is limited by patient motion. Correlation to prior exams recom mended and if unavailable, repeat exam with contrast is recommended for accurate localization.. ACT 112: Negative or not required by law. Electronically signed by: Richard Crook M.D. 12/11/2022 10:24 AM
[2022-12-11] MEDS: INSULIN ASPART PER UNIT CHARGE SC SCH ×4 (10:32→20:49)
--- NOTE | 2022-12-11 10:53 | Electrocardiogram Report ---
Test Reason : Blood Pressure : / mmHG Vent. Rate : 077 BPM Atrial Rate : 077 BPM P-R Int : 162 ms QRS Dur : 086 ms QT Int : 422 ms P-R-T Axes : 088 -14 034 degrees QTc Int : 477 ms Poor data quality, interpretation may be adversely affected Normal sinus rhythm Normal ECG No previous ECGs available Confirmed by Syed Meyer ([id number]) on 12/11/2022 10:52:42 AM Referred By: REFERRED SELF Confirmed By:Redd Meyer
--- NOTE | 2022-12-11 12:09 | Neurology Consultation ---
Date of Consultation December 11, 2022 Assessment & Plan (1) Occlusion of right vertebral artery: (2) Balance problem: (3) Hoarseness of voice: (4) Meningioma, cerebral: Plan 82-year-old female presenting with subacute balance difficulty, voice hoarseness, occlusion of the right vertebral artery of uncertain chronicity, cerebral meningioma overlying the right parietal lobe with another possible meningioma overlying or within the left frontal lobe. Patient underwent a cardiac catheterization as well as ablation for atrial fibrillation 3 weeks ago at a [facility] facility. Reports that the catheterization was done through the right upper limb. Although there is no evidence of acute stroke on patient's brain MRI, her symptoms have been occurring over the past 3 weeks. A small subacute brainstem stroke may not be completely excluded and could potentially explain her signs and symptoms. I also note a mild right upper lid ptosis which could indicate a partial Hamida's syndrome which could localize to the right medulla/brainstem as well as mild dysmetria for the left lower limb, and dysarthria. However, she does not have a gross hemiataxia or crossed sensory deficit. She does have chronic hearing loss on the left which would not be related. I would recommend obtaining a repeat gadolinium-enhanced brain MRI. The study can be done this evening, would include high-resolution, BLANC sequences, with and without gadolinium to further assess the suspected incidental left frontal meningioma versus other lesion as suggested by radiology. This MRI would also help to further exclude a small brainstem stroke which could have been missed on the first MRI. Patient should continue with Eliquis, daily low-dose aspirin, and atorvastatin. May need to order an up-to-date lipid panel if results of previous evaluation not available. Although this patient does have a meningioma overlying the right frontal/parietal lobe, there is no associated mass effect upon the underlying cerebral cortex. It is therefore difficult to say if this lesion is responsible for patient's left leg weakness. I also note that her history is not suggestive of seizures. Surgical treatment or procedural intervention is not recommended for occluded vertebral arteries. Medical therapy with blood thinners and statins is standard. Fortunately, she likely has good collateral flow, and again, no evidence of acute or subacute infarct on recent brain MRI. Other than the above repeat gadolinium-enhanced brain MRI, I do not have any further specific recommendations for this patient. She should continue with Eliquis, daily low-dose aspirin, and atorvastatin. I do not think the right fro ntal meningioma would require surgical treatment or gamma knife at this point in time. The possible left frontal lobe meningioma would of course need to be reevaluated with follow-up MRI as above. Other lesions may not be completely excluded. Consultations with PT/OT/speech therapy. Would consider obtaining a fiberoptic evaluation of speech and swallowing. History of Present Illness Reason for Consultation: imbalance Requesting Physician: Dr. Mendoza Attending Physician: Lev Avendano MD History of Present Illness The patient is an 82-year-old female who presented to the emergency department yesterday with a chief complaint of a feeling of imbalance which has been present intermittently for the previous 3 weeks. She is also complained of associated right-sided neck pain. Symptoms began after undergoing a cardiac catheterization about 3 weeks ago at a [facility] affiliated hospital. She reports that the catheterization procedure was done through the right upper limb. She has also complained of intermittent headaches and facial numbness. She also relays a history of chronic, intermittent, left leg weakness potentially related to a history of right cerebral convexity meningioma. She also complains of hoarse voice which has been present since her cardiac catheterization. Past medical history notable for type 2 diabetes mellitus, peripheral neuropathy, s leep apnea, paroxysmal atrial fibrillation, hypertension, GERD, diverticulosis, osteoporosis, meningioma, pulmonary embolism, anxiety disorder. She ambulates with a cane at baseline. As above, underwent cardiac catheterization as well as ablation for atrial fibrillation. A CT of the brain revealed a 5 x 12 mm partially calcified meningioma overlying the right frontal lobe without associated mass effect. No hemorrhage or acute process. A CT angiogram of the head revealed occlusion of the terminal right vertebral artery. Remaining vessels unremarkable. A CTA of the neck revealed proximal tortuosity and kinking of the right vertebral artery resulting in 60% stenosis, no dissection, tapering and limited contrast in the distal right vertebral artery consistent with hypoplasia or occlusion. MRI of the brain negative for acute or subacute stroke. There is a probable meningioma overlying the right parietal region measuring 16 mm. Also noted is an 8 mm homogeneously enhancing lesion within the left frontal lobe, superior frontal gyrus, uncertain if dural based, extra- axial, could be meningioma as well, repeat examination with contrast recommended for accurate localization. Allergies Allergy/AdvReac Type Severity Reaction Status Date / Time No Known Allergies Allergy Verified 12/11/22 07:11 Home Medications Medication Instructions Recorded Confirmed Type amlodipine 10 mg tablet 10 mg PO DAILY 12/11/22 12/11/22 History apixaban 5 mg tablet (Eliquis) 5 mg PO BID 12/11/22 12/11/22 History aspirin 81 mg tablet,delayed 81 mg PO DAILY 12/11/22 12/11/22 History release atorvastatin 40 mg tablet 40 mg PO DAILY 12/11/22 12/11/22 History coenzyme Q10 100 mg capsule (Co 100 mg PO DAILY 12/11/22 12/11/22 History Q-10) furosemide 40 mg tablet 40 mg PO DAILY PRN as directed 12/11/22 12/11/22 History hydralazine 25 mg tablet 25 mg PO BID 12/11/22 12/11/22 History levothyroxine 50 mcg tablet 50 mcg PO DAILYBB 12/11/22 12/11/22 History losartan 50 mg tablet 50 mg PO BID 12/11/22 12/11/22 History magnesium oxide 400 mg (241.3 mg 400 mg PO BID 12/11/22 12/11/22 History magnesium) tablet metformin 500 mg tablet,extended 500 mg PO QAM 12/11/22 12/11/22 History release 24 hr metoprolol succinate 50 mg 50 mg PO QAM 12/11/22 12/11/22 History tablet,extended release 24 hr multivitamin 1 tab PO DAILY 12/11/22 12/11/22 History omeprazole 20 mg capsule,delayed 20 mg PO DAILY 12/11/22 12/11/22 History release potassium chloride 20 mEq oral 20 meq PO DAILY 12/11/22 12/11/22 History packet terazosin 2 mg capsule 2 mg PO DAILY 12/11/22 12/11/22 History Patient History Medical History Atrial fibrillation Meningioma Social History Smoking Status: Never smoker Hx Alcohol Use: No Hx Substance Use: No Preferred Language: Lao Communication Ability: Effective [employer] Receptionist Required: No Beliefs That Will Affect Care: None Current Living Situation: Alone Feels Safe at Home: Yes Review of Systems Constitutional: no fever and no chills Eyes: no blind spots and no diplopia Ear, Nose, Mouth, Throat: + hearing loss (Chronic hearing loss on the left) Respiratory: no cough and no dyspnea Cardiovascular: no chest pain and no palpitations Gastrointestinal: no nausea and no vomiting Genitourinary: no dysuria Musculoskeletal: + neck pain; no myalgia Integumentary: no rash and no lesions Neurologic: as per Subjective / HPI, + gait abnormality, + unsteadiness, + localized weakness, + paresthesia and + headache(s) Psychiatric: no depression and no anxiety Hematologic / Lymphatic: no easy bleeding and no easy bruising Exam (Neuro) Constitutional: well developed; no acute distress Eyes: normal visual ardon by confrontation, PERRL and EOM intact bilaterally Mild right upper lid ptosis noted Cardiovascular: Vessels: no carotid bruit Neurologic: Oriented to:: Person, Place and Time Memory: Short Term Intact and Remote Intact Attention: Span Intact and Concentration Intact Speech Fluency: Dysarthria and Other (Voice is hoarse); negative Dysfluency Speech Aphasia: negative Aphasia Fund of Knowledge: Current Events, Past History and Vocabulary Cranial Nerves: Normal II, III, IV, , V, VII, VIII, IX, X, XI and XII Motor Strength: Normal Lower Extremities and Normal Upper Extremities Motor Tone: Normal Lower Extremities and Normal Upper Extremities Muscle Bulk/Involuntary Movements: No Involuntary Movements; negative Muscle Atrophy Sensation: Light Touch Intact, Pain/Temperature Intact, Vibration Intact and Proprioception Intact Coordination: Heel-Montes Abnormal (mild) Laterality: Left; negative Finger-Nose Abnormal Deep Tendon Reflexes: Rt Triceps: 1+, Lt Triceps: 1+, Rt Biceps: 1+, Lt Biceps: 1+, Rt Brachioradialis: 1+, Lt Brachioradialis: 1+, Rt Patellar: 1+, Lt Patellar: 1+, Rt Ankle: 1+ and Lt Ankle: 1+ Special Tests: negative Babinski Present Details: Gait not tested Results & Data Vital Signs (Past 12 Hours) Vital Signs Temp Pulse Pulse Resp BP BP Pulse Ox 12/11/22 08:00 71 21 94 12/11/22 08:00 181/94 H 12/11/22 07:00 163/80 H 12/11/22 07:00 62 20 94 12/11/22 06:00 64 12 93 12/11/22 06:00 135/62 12/11/22 05:00 122/62 12/11/22 05:00 61 16 93 03/21/23 04:00 61 17 93 12/11/22 04:00 120/58 L 12/11/22 03:05 79 18 87 L 12/11/22 03:05 148/85 H 12/11/22 02:00 95 12/11/22 00:40 95 12/11/22 08:48 36.8 C 85 22 181/94 H 97 12/11/22 07:18 12/11/22 06:30 71 18 135/62 95 12/11/22 05:44 61 17 122/62 94 12/11/22 04:10 61 17 120/58 L 93 12/11/22 04:00 61 12/11/22 01:44 73 18 152/80 H 95 Pulse Ox O2 Del Method O2 Del Method 12/11/22 08:00 12/11/22 08:00 12/11/22 07:00 12/11/22 07:00 12/11/22 06:00 12/11/22 06:00 12/11/22 05:00 12/11/22 05:00 12/11/22 04:00 12/11/22 04:00 12/11/22 03:05 12/11/22 03:05 12/11/22 02:00 12/11/22 00:40 12/11/22 08:48 Room Air 12/11/22 07:18 93 Room Air 12/11/22 06:30 Room Air 12/11/22 05:44 Room Air 12/11/22 04:10 Room Air 12/11/22 04:00 12/11/22 01:44 Room Air Laboratory Results WBC 9.24, hemoglobin 14.9, hematocrit 44.6, platelet count 176, sodium 140, potassium 3.4, BUN 20, creatinine 0.89, glucose 124, calcium 9.7, magnesium 1.8, AST 17, ALT 15, vitamin B12 307, TSH 3.075, urinalysis potentially suggestive of UTI Diagnostic Findings CT of the head including CT angiography of the head and neck and brain MRI are as described in the history of present illness. I independently reviewed these images. An electrocardiogram revealed a normal sinus rhythm, 77 bpm. PG Care Time/CCT Total # of Minutes Spent Total Time Spent with Patient: Total time spent is greater than 50% in coordination of care (as documented) at patient's floor/unit and/or counseling patient: Coding Level of Care Code 33746 INT INP/OBS CARE MIN Diagnoses Occlusion of right vertebral artery I65.01 Balance problem R26.89 Hoarseness of voice R49.0 Meningioma, cerebral D32.0
--- NOTE | 2022-12-11 17:40 | Communication Note ---
Date of Service: December 11, 2022 Patient seen and examined in the emergency department. She is comfortably lying on the bed; not in any distress. Denies any dizziness at present time. On examination Alert oriented x3. Voice is hoarse Chestbilateral basal breath sound CVSS1-S2 heard no murmur Abdomensoft nontender Neurogrossly intact Assessment/plan: MRI brain was done; no evidence of acute infarct. Likely meningioma in right parietal region. Neurology evaluated the patient; recommended to repeat adolinium-enhanced brain MRI, continue Eliquis and daily low-dose aspirin and Lipitor. PT OT/speech evaluation pending
[2022-12-11] MEDS: ALPRAZolam 0.25 MG TABLET PO PRN (21:58)
[2022-12-11] MEDS: cefTRIAXone SODIUM 2,000 MG in DEXTROSE 5% AD-VAN 50 ML IV SCH (23:29)
--- NOTE | 2022-12-12 01:33 | Magnetic Resonance Report ---
Exam(s): MRI HEAD W/WO Contrast EXAM: MR Head Without and With Intravenous Contrast CLINICAL HISTORY: Reason for exam: include BLANC with gomez, ? left frontal lesion. TECHNIQUE: Magnetic resonance images of the head/brain without and with intravenous contrast in multiple planes. CONTRAST: Contrast must be dictated COMPARISON: No relevant prior studies available. FINDINGS: Brain: There are avidly enhancing dural based lesions adjacent to the left frontal lobe measuring 0.8 cm (image 96 series 11) and right parietal lobe (image 96 series 11) measuring 1.3 x 0.9 cm. No hemorrhage. No acute infarct. Ventricles: Unremarkable. No ventriculomegaly. Bones/joints: Unremarkable. Sinuses: Unremarkable as visualized. No acute sinusitis. Mastoid air cells: Unremarkable as visualized. No mastoid effusion. Orbits: Unremarkable as visualized. IMPRESSION: Avidly enhancing extra-axial masses in the left frontal and right parietal regions which most likely reflect meningiomas. Follow-up examination is recommended. Electronically signed by: Silverio Salcido MD 12/12/22 01:32 AM
[2022-12-12] MEDS: LEVOTHYROXINE SODIUM 50 MCG TABLET PO SCH (05:44)
[2022-12-12 06:08] LABS: Basophils # (auto) 0.03 K/uL (0-0.2); Basophils % (auto) 0.5 %; Eosinophils # (auto) 0.14 K/uL (0-0.50); Eosinophils % (auto) 2.4 %; Hematocrit (blood only) 38.7 % (37.0-47.0); Hemoglobin 13.1 g/dl (12.0-16.0); Immature Granulocytes # (auto) 0.01 K/uL (0.01-0.20); Immature Granulocytes % (auto) 0.2 %; Lymphocytes # (auto) 1.42 K/uL (1.2-3.4); Mean Corpuscular Hemoglobin 30.1 pg (25.0-34.0); Mean Corpuscular Hgb Conc 33.9 g/dL (32.0-36.0); Mean Platelet Volume 11.2 fL (9.4-12.4); Monocytes # (auto) 0.47 K/uL (0.11-0.59); Neutrophils # (auto) 3.84 K/uL (1.40-6.50); Neutrophils % (auto) 64.9 %; Platelet Count 152 K/uL (130-400); RDW Coefficient of Variation 13.2 % (11.5-14.5); Red Blood Count 4.35 M/uL (4.20-5.40); White Blood Count 5.91 K/ul (4.8-10.8)
[2022-12-12 06:19] LABS: BUN Creatinine Ratio 21.9 (10-20); Calcium 8.5 mg/dl (8.5-10.1); Creatinine Clr Calc Pharmacy 66.8 ml/min; Est GFR (African American) 90.2 ml/min; Est GFR (Non-African American) 77.8 ml/min; Potassium 3.7 mmol/L (3.5-5.1)
[2022-12-12] MEDS: INSULIN ASPART PER UNIT CHARGE SC SCH ×4 (09:01→20:29)
[2022-12-12] MEDS: TERAZOSIN HCL 1 MG CAP PO SCH (09:02)
[2022-12-12] MEDS: POTASSIUM CHLORIDE PWD 20 MEQ PACK PO SCH (09:03)
[2022-12-12] MEDS: LOSARTAN POTASSIUM 50 MG TAB PO SCH ×2 (09:04→20:28)
[2022-12-12] MEDS: METOPROLOL SUCC 50MG EXT REL TAB PO SCH (09:04)
[2022-12-12] MEDS: hydrALAZINE HCL 25 MG TAB PO SCH ×2 (09:04→20:27)
[2022-12-12] MEDS: amLODIPine BESYLATE 5 MG TAB PO SCH (09:04)
[2022-12-12] MEDS: MULTIVITAMIN TAB PO SCH (09:04)
[2022-12-12] MEDS: PANTOprazole 40 MG TAB PO SCH (09:04)
[2022-12-12] MEDS: APIXABAN 5 MG TABLET PO SCH ×2 (09:04→20:27)
[2022-12-12] MEDS: ASPIRIN 81 MG ECTAB PO SCH (09:04)
[2022-12-12] MEDS: ATORVASTATIN 40 MG TAB PO SCH (09:04)
[2022-12-12] MEDS: MAGNESIUM OXIDE 400 MG TAB PO SCH ×2 (09:05→20:27)
[2022-12-12 09:30] LABS: Estimated Average Glucose 146 mg/dl; Hemoglobin A1C 6.7 % (4.5-5.6)
--- NOTE | 2022-12-12 16:59 | Hospitalist Progress Note ---
Date of Service December 12, 2022 Assessment & Plan (1) Balance problem: Plan: Per previous hospitalist notes with addendum: ASSESSMENT AND PLAN: This is an 82-year-old female who presents with imbalance. 1. Imbalance. Meningioma right parietal lobe, left frontal lobe Acute CVA ruled out This is going on for last two weeks, but lately got worse. History of meningioma seen on the CAT scan on the right frontal lobe. She says her left leg weakness is getting worse. Repeat brain MRI: Avidly enhancing extra-axial masses in the left frontal and right parietal regions which most likely reflect meningiomas. Follow-up examination is recommended. Patient reports improvement of ambulation today PT and OT recommending patient to return home Voice still hoarse but no other new neurologic symptoms Continue usual Eliquis, aspirin, Lipitor Awaiting further recommendations by neurology service 2. Urinary tract infection: Urine culture: Gram-negative bacilli Continue ceftriaxone IV day #2 3. History of atrial fibrillation: Recently had ablation. On Eliquis and metoprolol succinate. 4. History of hypertension: On hydralazine, losartan, metoprolol succinate, terazosin, and amlodipine. Blood pressure stable overall 5. Hyperlipidemia: On statin. 6. Diabetes: On metformin. Will hold metformin. BSG is okay 7. Gastroesophageal reflux disease: On omeprazole. 8. Deep venous thrombosis prophylaxis: On Eliquis. DISPOSITION:Anticipate discharge to home tomorrow when medically stable Admission and Anticipated Discharge Date Admission Date: December 11, 2022 Subjective Follow-up for gait imbalance, meningioma, etc. Seen sitting up in bed, comfortable, in good spirits States she feels better today Balance seems to be improving, ambulating better as per patient Voice still hoarse No other new neurologic symptoms No shortness of breath, chest pain, palpitations, etc. Review of Systems Review of Systems: all noted and negative except for above Physical Exam Physical Exam: General- oriented x 3, not in distress, speaks in sentences with no effort or accessory muscle use Eyes- anicteric Neck- no JVD Lungs- clear breath sounds bilaterally, no rales/wheezes Heart- normal rate, regular rhythm; no murmurs Abdomen- normal bowel sounds, nondistended, soft, nontender Extremities- no pretibial edema, no calf tenderness Neuro- alert, oriented x 3; no gross focal neurologic deficits Skin- warm & dry Results & Data Results & Data Vital Signs (Past 12 Hours) Vital Signs Temp Pulse Pulse Resp BP Pulse Ox Pulse Ox 12/12/22 16:05 36.6 C 67 18 124/77 93 12/12/22 14:06 65 12/12/22 11:30 36.7 C 60 18 117/72 92 12/12/22 08:00 36.5 C 67 18 165/84 H 93 12/12/22 05:59 65 12/12/22 07:30 96 O2 Del Method O2 Del Method O2 Flow Rate 12/12/22 16:05 Room Air 12/12/22 14:06 12/12/22 11:30 Room Air 12/12/22 08:00 Room Air 12/12/22 05:59 12/12/22 07:30 Room Air 0 all noted and reviewed including below
[2022-12-12] MEDS: ALPRAZolam 0.25 MG TABLET PO PRN (22:39)
[2022-12-12] MEDS: cefTRIAXone SODIUM 2,000 MG in DEXTROSE 5% AD-VAN 50 ML IV SCH (22:40)
[2022-12-13] MEDS: LEVOTHYROXINE SODIUM 50 MCG TABLET PO SCH (06:04)
[2022-12-13] MEDS: MAGNESIUM OXIDE 400 MG TAB PO SCH (08:35)
[2022-12-13] MEDS: APIXABAN 5 MG TABLET PO SCH (08:38)
[2022-12-13] MEDS: TERAZOSIN HCL 1 MG CAP PO SCH (08:38)
[2022-12-13] MEDS: PANTOprazole 40 MG TAB PO SCH (08:39)
[2022-12-13] MEDS: MULTIVITAMIN TAB PO SCH (08:40)
[2022-12-13] MEDS: amLODIPine BESYLATE 5 MG TAB PO SCH (08:40)
[2022-12-13] MEDS: ATORVASTATIN 40 MG TAB PO SCH (08:41)
[2022-12-13] MEDS: ASPIRIN 81 MG ECTAB PO SCH (08:42)
[2022-12-13] MEDS: METOPROLOL SUCC 50MG EXT REL TAB PO SCH (08:46)
[2022-12-13] MEDS: LOSARTAN POTASSIUM 50 MG TAB PO SCH (08:47)
[2022-12-13] MEDS: hydrALAZINE HCL 25 MG TAB PO SCH (08:48)
[2022-12-13] MEDS: POTASSIUM CHLORIDE PWD 20 MEQ PACK PO SCH (08:53)
[2022-12-13] MEDS: INSULIN ASPART PER UNIT CHARGE SC SCH ×2 (08:59→12:48)
--- NOTE | 2022-12-13 09:36 | Hospitalist Progress Note ---
Date of Service December 13, 2022 Assessment & Plan (1) Balance problem: Plan: Per previous hospitalist notes with addendum: ASSESSMENT AND PLAN: This is an 82-year-old female who presents with imbalance. 1. Balance problem, resolved Acute CVA ruled out UTI contributing? Meningioma, right parietal lobe, left frontal lobe Vertebral artery stenosis, right This is going on for last two weeks, but lately got worse. History of meningioma seen on the CAT scan on the right frontal lobe. She says her left leg weakness is getting worse. Brain MRI with contrast: Avidly enhancing extra-axial masses in the left frontal and right parietal regions which most likely reflect meningiomas. Follow-up examination is recommended. The proximal right vertebral artery is tortuous with kinking causing 60% stenosis which may be transient. No dissection is seen. There is tapering and limited contrast seen in the distal right vertebral artery which is either hypoplastic or occluded. Mild calcification in both carotid bifurcations without flow limiting stenosis or dissection. CT angiogram of the head and neck: There is occlusion of the terminal right vertebral artery segment. The remainder of the cerebral vessels are widely patent. [facility] physician group neurologist consulted, Dr. Willis Meningioma not likely contributing to patient's symptoms Continue usual Eliquis, aspirin, Lipitor "Surgical treatment or procedural intervention is not recommended for occluded vertebral arteries. Medical therapy with blood thinners and statins is standard. Fortunately, she likely has good collateral flow, and again, no evidence of acute or subacute infarct on recent brain MRI." Patient reports improvement of ambulation, balance problem mostly resolved PT and OT recommending patient to return home Voice still hoarse but no other new neurologic symptoms Continue usual Eliquis, aspirin, Lipitor 2. Urinary tract infection: Urine culture: E. coli, pansensitive Completed 2-day course of ceftriaxone IV while admitted Discharged on cefuroxime x3 days to complete 5-day course 3. History of atrial fibrillation: Recently had ablation. On Eliquis and metoprolol succinate. Patient also reports voice hoarseness after recent ablation Speech therapy recommending outpatient ENT referral 4. History of hypertension: On hydralazine, losartan, metoprolol succinate, terazosin, and amlodipine. Blood pressure stable overall 5. Hyperlipidemia: On statin. 6. Diabetes: On metformin. 7. Gastroesophageal reflux disease: On omeprazole. 8. Deep venous thrombosis prophylaxis: On Eliquis. DISPOSITION: Discharge to home Follow-up with PCP in 1 week Follow-up with neurologist in 2 to 3 weeks Refer to ENT plan of care discussed with patient in detail and at length all questions answered she is understanding, agreeable, comfortable with the plan of care Admission and Anticipated Discharge Date Admission Date: December 11, 2022 Results & Data Results & Data Vital Signs (Past 12 Hours) Vital Signs Temp Pulse Pulse Resp BP Pulse Ox O2 Del Method 12/13/22 08:36 55 L 12/13/22 07:42 36.6 C 69 16 160/94 H 95 Room Air 12/13/22 04:00 36.6 C 63 18 160/73 H 95 Room Air 12/13/22 00:00 63 12/12/22 23:00 36.7 C 60 18 161/78 H 94 Room Air
--- NOTE | 2022-12-13 09:46 | Discharge Summary ---
Discharge Summary Date of Service December 13, 2022 Notes For Next Care Provider Medication Changes From Visit New medication: Cefuroxime 250 mg twice a day x3 days Admission HPI Per Admitting Provider HISTORY OF PRESENT ILLNESS: An 82-year-old female with past medical history significant for type 2 diabetes, peripheral neuropathy, sleep apnea, paroxysmal atrial fibrillation, hypertension, GERD, diverticulosis of large intestine, osteoporosis, history of meningioma, history of pulmonary embolism, generalized anxiety disorder, chronic fatigue. The patient lives with the grandson. Walks with a cane. Presents with ongoing imbalance for the last two weeks. For the last two days, it got worse, that is the reason she came here and she states she was in the [facility] [place] in October where cardiac catheterization was done, which was fine, and ablation was done for AFib and she was also shocked. At that time, the tube was passed through the throat. Since then, she is having a lot of soreness to the throat and hoarseness of the voice. Initially, she was not able to eat, but now she is eating regular food okay. Denies any fever or chills. She denies any chest pain, no shortness of breath, no nausea, no abdominal pain. She has chronic urinary incontinence. No burning micturition. Normal bowel movements. No swelling in the legs. No headache. She is not feeling dizzy, but while walking she could not walk because she felt imbalance. Since October, since the procedure, she is getting on and off tingliness in the face and sometimes her left eyebrow raises up. She saw eye doctor and they could not find anything. Pressures are okay. Denies any runny nose. She says she could not hear from the left ear. Admission Exam Per Admitting Provider GENERAL: The patient is of moderate built, not in acute distress. VITAL SIGNS: Temperature 36.7, pulse 61, respiratory rate 17, blood pressure 120/58, oxygen 93% on room air. HEENT: Pupils equal, round, and reactive to light. Oral mucosa moist. NECK: No JVD. No neck masses. CARDIOVASCULAR: S1 and S2 heard. Regular rate and rhythm. No murmur, no gallop. RESPIRATORY SYSTEM: Normal AP diameter. No accessory muscle use. No wheezing or crackles. ABDOMEN: Soft, bowel sounds present, nontender, no distention. CENTRAL NERVOUS SYSTEM: Alert and oriented. Speech is clear. No facial droop. Power 5/5 in all extremities. Sensation is intact. No pronator drift. Coordination of movements normal. EXTREMITIES: No edema, no erythema. Principal Dx & Hospital Course #1 = Principal Diagnosis (1) Balance problem: Per previous hospitalist notes with addendum: ASSESSMENT AND PLAN: This is an 82-year-old female who presents with imbalance. 1. Balance problem, resolved Acute CVA ruled out UTI contributing? Meningioma, right parietal lobe, left frontal lobe Vertebral artery stenosis, right This is going on for last two weeks, but lately got worse. History of meningioma seen on the CAT scan on the right frontal lobe. She says her left leg weakness is getting worse. Brain MRI with contrast: Avidly enhancing extra-axial masses in the left frontal and right parietal regions which most likely reflect meningiomas. Follow-up examination is recommended. The proximal right vertebral artery is tortuous with kinking causing 60% stenosis which may be transient. No dissection is seen. There is tapering and limited contrast seen in the distal right vertebral artery which is either hypoplastic or occluded. Mild calcification in both carotid bifurcations without flow limiting stenosis or dissection. CT angiogram of the head and neck: There is occlusion of the terminal right vertebral artery segment. The remainder of the cerebral vessels are widely patent. [facility] physician group neurologist consulted, Dr. Willis Meningioma not likely contributing to patient's symptoms Continue usual Eliquis, aspirin, Lipitor "Surgical treatment or procedural intervention is not recommended for occluded vertebral arteries. Medical therapy with blood thinners and statins is standard. Fortunately, she likely has good collateral flow, and again, no evidence of acute or subacute infarct on recent brain MRI." Patient reports improvement of ambulation, balance problem mostly resolved PT and OT recommending patient to return home Voice still hoarse but no other new neurologic symptoms Continue usual Eliquis, aspirin, Lipitor 2. Urinary tract infection: Urine culture: E. coli, pansensitive Completed 2-day course of ceftriaxone IV while admitted Discharged on cefuroxime x3 days to complete 5-day course 3. History of atrial fibrillation: Recently had ablation. On Eliquis and metoprolol succinate. Patient also reports voice hoarseness after recent ablation Speech therapy recommending outpatient ENT referral 4. History of hypertension: On hydralazine, losartan, metoprolol succinate, terazosin, and amlodipine. Blood pressure stable overall 5. Hyperlipidemia: On statin. 6. Diabetes: On metformin. 7. Gastroesophageal reflux disease: On omeprazole. DISPOSITION: Discharge to home Follow-up with PCP in 1 week Follow-up with neurologist in 2 to 3 weeks Refer to ENT plan of care discussed with patient in detail and at length all questions answered she is understanding, agreeable, comfortable with the plan of care Discharge Exam General- oriented x 3, not in distress, speaks in sentences with no effort or accessory muscle use Eyes- anicteric Neck- no JVD Lungs- clear breath sounds bilaterally, no rales/wheezes Heart- normal rate, regular rhythm; no murmurs Abdomen- normal bowel sounds, nondistended, soft, nontender Extremities- no pretibial edema, no calf tenderness Neuro- alert, oriented x 3; no gross focal neurologic deficits Skin- warm & dry Updated Medication List Medication Instructions Recorded Confirmed Type amlodipine 10 mg tablet 10 mg PO DAILY 12/11/22 12/11/22 History apixaban 5 mg tablet (Eliquis) 5 mg PO BID 12/11/22 12/11/22 History aspirin 81 mg tablet,delayed 81 mg PO DAILY 12/11/22 12/11/22 History release atorvastatin 40 mg tablet 40 mg PO DAILY 12/11/22 12/11/22 History coenzyme Q10 100 mg capsule (Co 100 mg PO DAILY 12/11/22 12/11/22 History Q-10) furosemide 40 mg tablet 40 mg PO DAILY PRN as directed 12/11/22 12/11/22 History hydralazine 25 mg tablet 25 mg PO BID 12/11/22 12/11/22 History levothyroxine 50 mcg tablet 50 mcg PO DAILYBB 12/11/22 12/11/22 History losartan 50 mg tablet 50 mg PO BID 12/11/22 12/11/22 History magnesium oxide 400 mg (241.3 mg 400 mg PO BID 12/11/22 12/11/22 History magnesium) tablet metformin 500 mg tablet,extended 500 mg PO QAM 12/11/22 12/11/22 History release 24 hr metoprolol succinate 50 mg 50 mg PO QAM 12/11/22 12/11/22 History tablet,extended release 24 hr multivitamin 1 tab PO DAILY 12/11/22 12/11/22 History omeprazole 20 mg capsule,delayed 20 mg PO DAILY 12/11/22 12/11/22 History release potassium chloride 20 mEq oral 20 meq PO DAILY 12/11/22 12/11/22 History packet terazosin 2 mg capsule 2 mg PO DAILY 12/11/22 12/11/22 History cefuroxime axetil 250 mg tablet 250 mg PO BID 3 days #6 tabs 12/13/22 Rx Hospital Stay Data Consultations 12/11/22 02:01 ED Decision to Admit Stat 12/11/22 08:00 Consult Neurology Routine Diagnostic Imagining Performed 12/10/22 22:41 CT head/brain wo con Stat 12/10/22 22:42 CT angio head w con Stat IMPRESSION: There is occlusion of the terminal right vertebral artery segment. The remainder of the cerebral vessels are widely patent. CT angio neck with con Stat IMPRESSION: The proximal right vertebral artery is tortuous with kinking causing 60% stenosis which may be transient. No dissection is seen. There is tapering and limited contrast seen in the distal right vertebral artery which is either hypoplastic or occluded. Mild calcification in both carotid bifurcations without flow limiting stenosis or dissection. 12/11/22 06:05 MRI Brain [MR brain wo/w con] Urgent 12/11/22 12:34 MR brain wo/w con Routine Exam(s): MRI HEAD W/WO Contrast EXAM: MR Head Without and With Intravenous Contrast CLINICAL HISTORY: Reason for exam: include BLANC with gomez, ? left frontal lesion. TECHNIQUE: Magnetic resonance images of the head/brain without and with intravenous contrast in multiple planes. CONTRAST: Contrast must be dictated COMPARISON: No relevant prior studies available. FINDINGS: Brain: There are avidly enhancing dural based lesions adjacent to the left frontal lobe measuring 0.8 cm (image 96 series 11) and right parietal lobe (image 96 series 11) measuring 1.3 x 0.9 cm. No hemorrhage. No acute infarct. Ventricles: Unremarkable. No ventriculomegaly. Bones/joints: Unremarkable. Sinuses: Unremarkable as visualized. No acute sinusitis. Mastoid air cells: Unremarkable as visualized. No mastoid effusion. Orbits: Unremarkable as visualized. IMPRESSION: Avidly enhancing extra-axial masses in the left frontal and right parietal regions which most likely reflect meningiomas. Follow-up examination is recommended. Electronically signed by: Silverio Salcido MD 12/12/22 01:32 AM Pending Results Patient Have Any Pending Studies at Discharge: No Discharge Instructions Given to Patient (Per Discharging Provider) You new medication is: Cefuroxime-for urinary tract infection Drink plenty of water. PLEASE CALL YOUR PRIMARY CARE PHYSICIAN OR RETURN TO THE ER IF WITH WORSENING OF SYMPTOMS, INCLUDING Loss of balance, difficulty with walking, headaches, problems with vision, nausea or vomiting, Fever/chills, abdominal pain, weakness, etc. FOLLOW UP WITH PRIMARY CARE PHYSICIAN IN 1 WEEK. FOLLOW-UP WITH EAR/NOSE/THROAT SPECIALIST IN 1 TO 2 WEEKS. YOUR PRIMARY CARE PHYSICIAN CAN ASSIST YOU WITH THE REFERRAL. FOLLOW-UP WITH NEUROLOGIST IN 2 TO 3 WEEKS. Total Time Total Time Spent Total Time Spent (In Minutes): >30 minutes
== END 2022-12-13 15:15 | disposition home health service (06) | DRG 690 ==
LOC: ED 21:00 → EDINP 12-11 04:55 → SUATTDRO 12-11 04:55 → 2N 12-11 06:05